=== PATIENT | female | born 1960 | race Caucasian/White ===

== ENCOUNTER 2018-05-26 15:21 | Emergency (ER) | payer OTHER ==
[~2018-05-26] VITALS: Ht 165.1 cm; Wt 74.8 kg
[2018-05-26] MEDS ORDERED: LORAZEPAM INJ 2 MG/ML VIAL IM STA (15:28)
[2018-05-26] MEDS ORDERED: HALOPERIDOL LACTATE INJ 5 MG/ML VIAL IM ONE (15:30)
[2018-05-26] MEDS ORDERED: HALOPERIDOL LACTATE INJ 5 MG/ML VIAL ONE (15:43)
[2018-05-26] MEDS ORDERED: LORAZEPAM INJ 2 MG/ML VIAL ONE (15:44)
--- NOTE | 2018-05-26 15:55 | NUR ---
Caroline López boom pump operator at bedside for blood draw
[2018-05-26 15:57] LABS: BASOPHILS # (AUTO) 0.1 /CMM (0.0-0.2); BASOPHILS % (AUTO) 0.9 % (0.0-2.0); EOSINOPHILS % (AUTO) 2.7 % (0.0-6.0); HEMATOCRIT 38 % (33-45); HEMOGLOBIN 13.1 g/dL (11.5-14.8); LYMPHOCYTES # (AUTO) 1.5 /CMM (0.8-4.8); LYMPHOCYTES % (AUTO) 21.4 % (20.0-44.0); MEAN CORPUSCULAR HGB CONC 34 g/dl (31.0-36.0); MEAN CORPUSCULAR VOLUME 88 fL (82-100); MONOCYTES # (AUTO) 0.6 /CMM (0.1-1.30); MONOCYTES % (AUTO) 8.7 % (2.0-12.0); NEUTROPHILS # (AUTO) 4.7 /CMM (1.8-8.9); NEUTROPHILS % (AUTO) 66.3 % (43.0-81.0); PLATELET COUNT (AUTO) 244 /CMM (150-450); RDW COEFFICIENT OF VARIATION 13.4 (11.5-15.0); RED BLOOD CELL COUNT(AUTO) 4.36 MIL/uL (4.0-5.2); WHITE BLOOD COUNT (AUTO) 7.1 K/uL (4.3-11.0)
[2018-05-26 16:23] LABS: ACETAMINOPHEN 0 ug/ml (10-30); ALANINE AMINOTRANSFERASE 27 U/L (12-78); ALBUMIN 3.8 g/dL (3.4-5.0); ALCOHOL, BLOOD < 3 mg/dL (0-0); ALKALINE PHOSPHATASE 89 U/L (46-116); ASPARTATE AMINOTRANSFERASE 23 U/L (15-37); BILIRUBIN,DIRECT 0.2 mg/dL (0.0-0.2); BILIRUBIN,TOTAL 1.1 mg/dL (0.2-1.0); CALCIUM, SERUM 8.8 mg/dL (8.5-10.1); CARBON DIOXIDE 29 mmol/L (21-32); CHLORIDE 106 mmol/L (98-107); CREATININE 0.7 mg/dL (0.6-1.3); GLUCOSE 99 mg/dL (74-106); POTASSIUM 3.6 mmol/L (3.5-5.1); SALICYLATE 2.3 mg/dL (2.8-20.0); SODIUM SERUM 141 mmol/L (136-145); TOTAL PROTEIN, SERUM 7.1 g/dL (6.4-8.2); UREA NITROGEN, BLOOD 10 mg/dL (7-18)
[2018-05-27 00:29] LABS: APPEARANCE,URINE SL CLOUDY (CLEAR); BILIRUBIN,URINE NEGATIVE (NEGATIVE); BLOOD, URINE 1+ Ery/uL (NEGATIVE); COLOR,URINE YELLOW (YELLOW); KETONES,URINE NEGATIVE (NEGATIVE); LEUKOCYTE ESTERASE ,URINE NEGATIVE (NEGATIVE); NITRITE, URINE POSITIVE (NEGATIVE); PH,URINE 7.5 (5.0-8.0); PROTEIN,URINE NEGATIVE (NEGATIVE); UGLUCOSE NEGATIVE (NEGATIVE); UROBILINOGEN,URINE 0.2 EU/dL (0.2)
[2018-05-27 00:40] LABS: BACTERIA,URINE Few /HPF (None Seen); RBC,URINE 0-2 /HPF (0-2); SQUAMOUS EPITHELIAL CELL,UR Few /HPF (None Seen); WBC,URINE 0-2 /HPF (0-3)
[2018-05-27 03:24] VITALS: BP 176/90
--- NOTE | 2018-05-27 03:25 | NUR ---
Patient discharged to home in stable condition. Written and verbal after care instructions given. Patient verbalizes understanding of instruction.
== END 2018-05-27 03:25 | disposition home or self-care (01) ==
LOC: ER 15:30
DX: F13.129 Sedative, hypnotic or anxiolytic abuse with intoxication, unspecified (principal); R60.9 Edema, unspecified; F99 Mental disorder, not otherwise specified; E11.9 Type 2 diabetes mellitus without complications; F31.9 Bipolar disorder, unspecified; Z90.89 Acquired absence of other organs; Z98.890 Other specified postprocedural states; Z86.19 Personal history of other infectious and parasitic diseases; Z88.0 Allergy status to penicillin; Z60.2 Problems related to living alone
CPT/HCPCS: 36415; 80048; 80076; 80305; 80329; 81001; 85025; 87086; 96372 ×2; 99284; A4606; G0480 ×2; J1630; J2060; 81000-TC; Z7610

== ENCOUNTER 2021-08-29 00:03 | Emergency (ER) | payer MEDICARE, OTHER ==
[~2021-08-29] VITALS: Ht 154.9 cm; Wt 90.7 kg
[2021-08-29] MEDS ORDERED: IOHEXOL-300 100 ML VIAL IV ONE (00:52)
[2021-08-29] MEDS ORDERED: CT SWABBABLE VALVE TRANS SET 1 EA INFUS.SET MC ONE (00:52)
[2021-08-29] MEDS ORDERED: IV NS 0.9% 250 ML IV ONE (00:53)
[2021-08-29 01:07] LABS: BASOPHILS # (AUTO) 0.1 K/uL (0.0-0.2); BASOPHILS % (AUTO) 1.2 % (0.0-2.0); EOSINOPHILS % (AUTO) 2.1 % (0.0-6.0); HEMATOCRIT 36 % (33-45); LYMPHOCYTES # (AUTO) 1.2 K/uL (0.8-4.8); LYMPHOCYTES % (AUTO) 15.4 % (20.0-44.0); MEAN CORPUSCULAR HGB CONC 33 g/dl (31.0-36.0); MEAN CORPUSCULAR VOLUME 84 fL (82-100); MONOCYTES # (AUTO) 0.6 K/uL (0.1-1.30); MONOCYTES % (AUTO) 8.3 % (2.0-12.0); NEUTROPHILS # (AUTO) 5.5 K/uL (1.8-8.9); PLATELET COUNT (AUTO) 332 K/uL (150-450); RED BLOOD CELL COUNT(AUTO) 4.33 MIL/uL (4.0-5.2); WHITE BLOOD COUNT (AUTO) 7.5 K/uL (4.3-11.0)
[2021-08-29 01:21] LABS: ALBUMIN 3.2 g/dL (3.4-5.0); BILIRUBIN,TOTAL 0.5 mg/dL (0.2-1.0); CALCIUM, SERUM 8.3 mg/dL (8.5-10.1); CREATININE 0.7 mg/dL (0.6-1.3); POTASSIUM 3.9 mmol/L (3.5-5.1); TOTAL PROTEIN, SERUM 7.2 g/dL (6.4-8.2)
--- NOTE | 2021-08-29 01:48 | NUR ---
RAC 18G PIV STARTED W/ GOOD BLOOD RETURN.
--- NOTE | 2021-08-29 01:48 | NUR ---
RAC 18G PIV STARTED W/ GOOD BLOOD RETURN.
[2021-08-29] MEDS ORDERED: IBUP-1955 PO (04:27)
[2021-08-29] MEDS ORDERED: TRAM50TA2 PO (04:27)
[2021-08-29 07:45] VITALS: BP 145/87
--- NOTE | 2021-08-29 12:06 | NUR ---
COVID SPECIMEN OBTAINED AND SENT TO LAB.
--- NOTE | 2021-08-29 12:06 | NUR ---
COVID SPECIMEN OBTAINED AND SENT TO LAB.
--- NOTE | 2021-08-29 12:12 | NUR ---
Spoke to Namita MATAMOROS. She is looking for a rehab placement for pt. Will update soon.
--- NOTE | 2021-08-29 12:12 | NUR ---
Spoke to Namita MATAMOROS. She is looking for a rehab placement for pt. Will update soon.
--- NOTE | 2021-08-29 13:15 | NUR ---
[facility] CALLED AND WAS NOTIFIED THAT PT HAS BEEN ACCEPTED TO [facility] FOR REHAB MEDICINE ETA 1700
--- NOTE | 2021-08-29 13:15 | NUR ---
[facility] CALLED AND WAS NOTIFIED THAT PT HAS BEEN ACCEPTED TO [facility] ETA 1700
--- NOTE | 2021-08-29 16:18 | NUR ---
REPORT GIVEN TO CONRADO AT [facility].
--- NOTE | 2021-08-29 16:18 | NUR ---
REPORT GIVEN TO CONRADO AT [facility].
== END 2021-08-29 16:33 ==
LOC: ER 00:05
DX: M84.48XA Pathological fracture, other site, initial encounter for fracture (principal); M21.331 Wrist drop, right wrist; R26.2 Difficulty in walking, not elsewhere classified; Z59.01 Sheltered homelessness; M16.12 Unilateral primary osteoarthritis, left hip; Z20.822 Contact with and (suspected) exposure to COVID-19; R16.0 Hepatomegaly, not elsewhere classified; K44.9 Diaphragmatic hernia without obstruction or gangrene; R91.8 Other nonspecific abnormal finding of lung field; R94.31 Abnormal electrocardiogram [ECG] [EKG]; R00.0 Tachycardia, unspecified; F31.9 Bipolar disorder, unspecified
CPT/HCPCS: 29125; 36415; 70450; 71260; 72125; 73090; 74177; 80053; 84484; 85025; 87426; 93005; 99285; J7050; Q9967; C9803

== ENCOUNTER 2022-08-01 10:50 | Emergency (ER) | payer MEDICARE, OTHER ==
[~2022-08-01] VITALS: Ht 165.1 cm; Wt 95.3 kg
[~2022-08-01 10:50] MED LIST: IBUP-1955 PO; TRAM50TA2 PO
--- NOTE | 2022-08-01 11:15 | NUR ---
[id number]/PD FOR PSYCHIATRIC EVAL. DEFACATING ON SOMEONE ELSE PROPERTY PLACED ON 5150 FOR GD BY [employer]. PLACED ON BED, TALKATIVE, BREATHING EVEN AND UNLABORED.
--- NOTE | 2022-08-01 11:43 | NUR ---
[place]oman daily in ED - 08/01/22 at 1200 by [employer] LINING BLOCKER. AT BEDSIDE PATIENT REFUSED BLOOD WORKS.
--- NOTE | 2022-08-01 12:00 | NUR ---
BLOOD DRAWN AND SWAB FOR COVID19 SENT TO LAB.
[2022-08-01 12:09] LABS: BASOPHILS # (AUTO) 0.1 K/uL (0.0-0.2); BASOPHILS % (AUTO) 1.1 % (0.0-2.0); EOSINOPHILS % (AUTO) 3.4 % (0.0-6.0); HEMATOCRIT 37 % (33-45); HEMOGLOBIN 12.3 g/dL (11.5-14.8); LYMPHOCYTES # (AUTO) 1.8 K/uL (0.8-4.8); LYMPHOCYTES % (AUTO) 19.3 % (20.0-44.0); MEAN CORPUSCULAR HGB CONC 33 g/dl (31.0-36.0); MEAN CORPUSCULAR VOLUME 87 fL (82-100); MONOCYTES # (AUTO) 0.9 K/uL (0.1-1.30); MONOCYTES % (AUTO) 9.4 % (2.0-12.0); NEUTROPHILS # (AUTO) 6.2 K/uL (1.8-8.9); NEUTROPHILS % (AUTO) 66.8 % (43.0-81.0); PLATELET COUNT (AUTO) 284 K/uL (150-450); RED BLOOD CELL COUNT(AUTO) 4.29 MIL/uL (4.0-5.2); WHITE BLOOD COUNT (AUTO) 9.3 K/uL (4.3-11.0)
[2022-08-01 12:18] LABS: CALCIUM, SERUM 8.5 mg/dL (8.5-10.1); CARBON DIOXIDE 31 mmol/L (21-32); CHLORIDE 104 mmol/L (98-107); CREATININE 0.6 mg/dL (0.6-1.3); GLUCOSE 112 mg/dL (74-106); POTASSIUM 3.4 mmol/L (3.5-5.1); SODIUM SERUM 137 mmol/L (136-145); UREA NITROGEN, BLOOD 12 mg/dL (7-18)
[2022-08-01 12:24] LABS: ALANINE AMINOTRANSFERASE 21 U/L (12-78); ALBUMIN 3.2 g/dL (3.4-5.0); ALCOHOL, BLOOD < 3 mg/dL (0-0); ALKALINE PHOSPHATASE 100 U/L (46-116); ASPARTATE AMINOTRANSFERASE 18 U/L (15-37); BILIRUBIN,DIRECT 0.1 mg/dL (0.0-0.2); BILIRUBIN,TOTAL 0.5 mg/dL (0.2-1.0); TOTAL PROTEIN, SERUM 6.9 g/dL (6.4-8.2)
[2022-08-01 12:29] LABS: ACETAMINOPHEN 0 ug/ml (10-30)
--- NOTE | 2022-08-01 12:44 | NUR ---
CAN STAY IN GPS PER INTAKE
--- NOTE | 2022-08-01 12:48 | NUR ---
PATIENT NOT ABLE TO PROVIDE URINE SAMPLE AT THIS TIME. AWARE
--- NOTE | 2022-08-01 12:59 | NUR ---
MOVE SHEET SUBMITTED
--- NOTE | 2022-08-01 13:59 | NUR ---
[facility] CALLED FOR TRANSPORT, ETA 60-75 MIN PER EDER.
[2022-08-01 15:09] VITALS: BP 136/84
--- NOTE | 2022-08-01 15:14 | NUR ---
GIVE REPORT TO MIKAEL [phone]
--- NOTE | 2022-08-01 15:30 | NUR ---
CALL [phone] [facility] FOR REPORT
--- NOTE | 2022-08-01 15:33 | NUR ---
report given to Isabel GALLO for [facility]
--- NOTE | 2022-08-01 16:16 | NUR ---
REPORT GIVEN AT [facility]. TRANSPORTED VIA BLS. STABLE CONDITION.
== END 2022-08-01 16:18 ==
LOC: ER 10:52
DX: F23 Brief psychotic disorder (principal); Z59.00 Homelessness unspecified; F31.9 Bipolar disorder, unspecified; Z20.822 Contact with and (suspected) exposure to COVID-19
CPT/HCPCS: 36415; 80048-TC; 80076-TC; 85025-TC; C9803; G0480